=== PATIENT | female | born 1995 | race Caucasian/White ===

== ENCOUNTER 2017-07-21 21:00 | Inpatient (IN) | payer OTHER, SELFPAY ==
--- NOTE | 2017-07-21 12:25 | PDOC.LDHP ---
Labor and Delivery H&P Chief complaint: scheduled induction Current gestational age (weeks): 39 Due date: 07/27/17 Dating criteria: first trimester ultrasound Grav: 1 Para: 0 Current complications: none Abnormal US findings: No Current medications: pre- vitamins Social history: none - Physical Exam General: NAD Heart: RRR Lungs: CTAB Abdomen: gravid Extremeties: no edema FHT: category 1 - Vaginal Exam cm dilated: 1 Effacement: 75% Station: 0 - OB Labs Blood type: O RH: negative Antibody Screen: negative HIV: negative RPR: negative HEPSAg: negative 1 hour GCT: negative GBS: positive Urine drug screen: not done Rubella: immune - Assessment L&D Assessment: elective induction at term - Plan Plan: admit to L&D, cervical ripening, labor augmentation if indicated, GBS antibiotic prophylaxis
[~2017-07-21 21:00] MED LIST: Acetaminophen 500 MG TAB PO PRN; Butorphanol Tartrate 1 MG/ML VIAL SLOW IVP PRN; Ondansetron HCl/PF 4 MG/2 ML Vial IVP PRN; Promethazine HCl 25 MG/ML VIAL IM PRN; Zolpidem Tartrate 5 MG TAB PO PRN
[2017-07-21 22:05] VITALS: BMI 29.9
[2017-07-21] MEDS: Lactated Ringer's 1,000 ML IV SCH (22:20)
[2017-07-21] MEDS ORDERED: NS w/ Oxytocin 10 units 500 ML IV SCH (22:30)
[2017-07-21] MEDS: Misoprostol 100 MCG TAB VAG SCH (22:46)
[2017-07-21 22:50] LABS: Hemoglobin 12.6 g/dL (12.0-16.0); Mean Corpuscular HGB CONC 34.9 g/dL (32.0-36.0); Mean Corpuscular Hemoglobin 31.6 pg (25.0-35.0); Mean Corpuscular Volume 90.4 fl (77.0-87.0); Mean Platelet Volume 6.8 fL (7.4-10.4); Platelet Count 203 thou/uL (130-400); RBC Distribution Width 12.5 % (11.5-14.5); Red Blood Cell (RBC) Count 3.98 mill/uL (4.00-5.20); White Blood Cell (WBC) Count 11.4 thou/uL (4.8-10.8)
[2017-07-21] MEDS ORDERED: Penicillin G Potassium 5 MILL.UNITS in Sodium Chloride 0.9% 100 ML IVPB SCH (23:00)
[2017-07-21] MEDS ORDERED: Ibuprofen 800 MG TAB PO PRN (23:00)
[2017-07-21] MEDS ORDERED: HYDROcodone/Acetaminophen 5/325 mg Tablet PO PRN (23:00)
[2017-07-21] MEDS ORDERED: NS / Oxytocin 40 units/1000ml 1,000 ML IV PRN (23:00)
[2017-07-21] MEDS ORDERED: Misoprostol 200 MCG TAB PR PRN (23:00)
[2017-07-21] MEDS ORDERED: Lidocaine 1% (PF) 30 ML VIAL SC PRN (23:00)
[2017-07-21 23:32] LABS: Syphilis Antibody Nonreactive (Nonreactive); Syphilis Antibody Index 0.03 S/CO (<1.00 Non-Reactive)
[2017-07-21 23:53] LABS: HBSAg Index 0.22 S/CO (0-0.99); Hep B Surf Ag Non-Reactive S/CO (NonReactive)
[2017-07-22] MEDS: Lactated Ringer's 1,000 ML IV SCH ×3 (02:20→09:20)
[2017-07-22] MEDS ORDERED: Penicillin G Potassium 5 MILL.UNITS VIAL ONE (04:58)
[2017-07-22] MEDS ORDERED: DISCONTINUE ALL PREVIOUS NARCOTICS FS SCH (07:30)
[2017-07-22] MEDS ORDERED: Bupivacaine 0.5% 20 ML, fentaNYL Citrate/PF 400 MCG in Sodium Chloride 0.9% 72 ML EPIDURAL SCH (07:30)
[2017-07-22] MEDS ORDERED: diphenhydrAMINE 50 MG/ML VIAL IVP PRN (08:57)
[2017-07-22] MEDS ORDERED: Acetaminophen 325 MG TAB PO PRN (08:57)
[2017-07-22] MEDS ORDERED: Naloxone HCl 0.4 mg/ml Vial IVP PRN ×2 (08:57)
[2017-07-22] MEDS ORDERED: Eucerin (Mineral Oil/Petrolatum,White) 30 gm Jar TOP PRN (08:57)
[2017-07-22] MEDS ORDERED: Ondansetron HCl/PF 4 MG/2 ML Vial IVP PRN (08:57)
[2017-07-22] MEDS ORDERED: Promethazine HCl 25 MG/ML VIAL IM PRN (08:57)
[2017-07-22] MEDS ORDERED: ePHEDrine/0.9% NaCl/PF SYRINGE 50 mg/10 ml SLOW IVP PRN (08:57)
[2017-07-22] MEDS ORDERED: Lactated Ringer's 500 ML IV PRN (08:57)
[2017-07-22] MEDS ORDERED: Fentanyl 4mcg/Marcaine 0.1% Cassette 100 ML EPIDURAL SCH (09:00)
[2017-07-22] MEDS ORDERED: Communication Order-Pharmacy FS SCH (09:00)
[2017-07-22] MEDS: Penicillin G 2.5 MILL.units 2.5 MILL.UNITS in Premix Bag 1 BAG IVPB SCH ×3 (09:10→13:35)
[2017-07-22] MEDS: Misoprostol 100 MCG TAB VAG SCH ×2 (09:15→14:55)
[2017-07-22] MEDS ORDERED: NS / Oxytocin 40 units/1000ml 1,000 ML ONE (14:29)
[2017-07-22] MEDS ORDERED: Lidocaine 1% (PF) 30 ML VIAL ONE (14:29)
--- NOTE | 2017-07-22 15:56 | PDOC.OPDEL ---
OB Operative/Delivery Note Delivery Dr/Surgeon: Howie Pre-Delivery Diagnosis: elective induction, medically indicated induction Procedure/Post Delivery Dx: spontaneous vaginal delivery Weeks gestation: 39 Anesthesia: epidural - Findings A Sex: female - 1 min: 8 - 5 min: 9 - Additional Findings/Plan Placenta delivered: spontaneous Repaired Obstetrical Laceration: episiotomy Estimated blood loss: 250ml Post delivery plan: routine recovery (nuchal cord x 1---episiotomy necessiated for expediting delivery for persitent fhr in the 70's)
[2017-07-22] MEDS ORDERED: Milk Of Magnesia 30 ML UDCUP PO PRN (15:59)
[2017-07-22] MEDS ORDERED: Lanolin Ointment 7 GM TUBE TOP PRN (15:59)
[2017-07-22] MEDS ORDERED: Benzocaine/Menthol 20-0.5% 60 ML CAN TOP PRN (15:59)
[2017-07-22] MEDS ORDERED: Bisacodyl 10 MG SUPP PR PRN (15:59)
[2017-07-22] MEDS ORDERED: Adacel (T-DAP) 0.5 ML VIAL IM ONE (15:59)
[2017-07-22] MEDS ORDERED: NS / Oxytocin 40 units/1000ml 1,000 ML IV SCH (16:00)
[2017-07-22] MEDS: Ibuprofen 800 MG TAB PO SCH (20:12)
[2017-07-22] MEDS: Docusate Calcium (SURFAK) 240 MG CAP PO SCH (20:14)
[2017-07-22] MEDS: traMADol HCl 50 MG TAB PO PRN (20:28)
[2017-07-23] MEDS: traMADol HCl 50 MG TAB PO PRN ×4 (03:56→22:23)
[2017-07-23] MEDS: Ibuprofen 800 MG TAB PO SCH ×3 (06:16→20:09)
--- NOTE | 2017-07-23 08:47 | PDOC.PP ---
Post Progress Note Post Day #: 1 PO intake tolerated: yes Flatus: yes Ambulation: yes Vital Signs (12 hours) Temp Pulse Resp BP 07/23/17 04:00 98.5 F 72 18 110/58 L 07/23/17 00:00 98.3 F 94 18 113/58 L 07/22/17 21:00 98.3 F 68 18 115/60 Weight Weight 197 lb - Physical Examination General: NAD Cardiovascular: no m/r/g, RRR Respiratory: clear to auscultation bilaterally, non-labored breathing Abdominal: + bowel sounds, lochia, no distention, appropriately TTP Result Diagrams: 07/21/17 22:20 Additional Labs: Post Labs Blood Type O NEGATIVE 07/21/17 22:20 Hep Bs Antigen Non-Reactive S/CO (NonReactive) 07/21/17 22:20 - Assessment/Plan Doing well post day 1-primipara. GBS positive-treated in labor. D/c for 07/24. Post f/u in 6 weeks.
[2017-07-23] MEDS: Ferrous Sulfate 325 MG TAB PO SCH ×2 (08:49→18:56)
[2017-07-23] MEDS: Penicillin G 2.5 MILL.units 2.5 MILL.UNITS in Premix Bag 1 BAG IVPB SCH (08:50)
[2017-07-23] MEDS: Misoprostol 100 MCG TAB VAG SCH (08:50)
[2017-07-23] MEDS: Docusate Calcium (SURFAK) 240 MG CAP PO SCH ×2 (09:11→20:09)
[2017-07-23] MEDS: Prenatal Vitamin 1 TAB PO SCH (09:11)
[2017-07-23] MEDS ORDERED: Bupivacaine/Epinephrine 0.25% 30 ML VIAL ONE (11:26)
[2017-07-23] MEDS ORDERED: Lidocaine 2% MPF 10 ML AMP (For Epidural Use) ONE (11:26)
[2017-07-24] MEDS: Ibuprofen 800 MG TAB PO SCH (05:11)
[2017-07-24 07:59] VITALS: BP 98/54; TEMP 99
[2017-07-24] MEDS: Docusate Calcium (SURFAK) 240 MG CAP PO SCH (09:09)
[2017-07-24] MEDS: Ferrous Sulfate 325 MG TAB PO SCH (09:09)
[2017-07-24] MEDS: Prenatal Vitamin 1 TAB PO SCH (09:09)
--- NOTE | 2017-07-24 11:19 | PDOC.PP ---
Post Progress Note Post Day #: 2 Subjective: Doing well PO intake tolerated: yes Flatus: yes Ambulation: yes Vital Signs (12 hours) Temp Pulse Resp BP 07/24/17 08:05 99.0 F 72 16 07/24/17 07:58 99.0 F 72 16 98/54 L 07/24/17 00:10 98.7 F 85 108/63 Weight Weight 197 lb - Physical Examination General: NAD Cardiovascular: no m/r/g Respiratory: clear to auscultation bilaterally Abdominal: + bowel sounds Extremities: negative homans (B) Neurological: no gross focal deficits Psychiatric: A&Ox3, normal affect Result Diagrams: 07/21/17 22:20 Additional Labs: Post Labs Blood Type O NEGATIVE 07/21/17 22:20 Hep Bs Antigen Non-Reactive S/CO (NonReactive) 07/21/17 22:20 (1) Vaginal delivery Code(s): O80 - ENCOUNTER FOR FULL-TERM UNCOMPLICATED DELIVERY Status: Acute - Assessment/Plan PPD 2: stable for discharge
[2017-07-24] MEDS: traMADol HCl 50 MG TAB PO PRN (11:50)
== END 2017-07-24 12:55 | disposition home or self-care (01) | DRG 775 ==
LOC: L&D 21:25 → 3SW 07-22 18:42
PROVIDERS: ADMIT Obstetrics & Gynecology; ATTEND Obstetrics & Gynecology
PROC: 10E0XZZ Delivery of Products of Conception, External Approach (ICD-10-PCS; principal; 2017-07-21)
PROC: 0W8NXZZ Division of Female Perineum, External Approach (ICD-10-PCS; 2017-07-21)
PROC: 3E0P7VZ Introduction of Hormone into Female Reproductive, Via Natural or Artificial Opening (ICD-10-PCS; 2017-07-21)
DX: O76 Abnormality in fetal heart rate and rhythm complicating labor and delivery (principal); Z37.0 Single live birth; O99.824 Streptococcus B carrier state complicating childbirth; O69.81X0 Labor and delivery complicated by cord around neck, without compression, not applicable or unspecified; Z3A.39 39 weeks gestation of pregnancy
CPT/HCPCS: 36415; 51702; 85027; 85461; 86780; 86850; 86870; 86900; 86901; 87340; 90384; 96372; J2001; J2405; J2540; J3010; J3490; J7050